=== PATIENT | female | born 1980 | race Caucasian/White ===

== ENCOUNTER 2020-08-07 11:55 | Emergency (ER) | payer OTHER ==
[~2020-08-07 11:55] MED LIST: AUGMENTIN 875-1 EACH PO; BACTROBAN CREAM15 GM TOP; ESTRADIOL1 EAC1 TD; IBUPROFEN600 MG PO; KEFLEX250 MG PO; NEURONTIN300 MG PO; PROZAC20 MG PO; THERAGRAN M TAB1 EA PO
[2020-08-07] MEDS ORDERED: CYCLOBENZAPRINE5 MG PO (13:49)
[2020-08-07] MEDS ORDERED: NAPROSYN EC 37375 MG PO (13:49)
== END 2020-08-07 14:10 | disposition home or self-care (01) ==
LOC: ER1 11:55
DX: S53.402A Unspecified sprain of left elbow, initial encounter (principal); S46.911A Strain of unspecified muscle, fascia and tendon at shoulder and upper arm level, right arm, initial encounter; X50.0XXA Overexertion from strenuous movement or load, initial encounter; S53.401A Unspecified sprain of right elbow, initial encounter
CPT/HCPCS: 73030; 73080; 73090; 96372; 99283; J1885